=== PATIENT | female | born 1940 | race Caucasian/White ===

== ENCOUNTER 2020-04-03 14:58 | Observation (INO) | payer MEDICARE, SELFPAY ==
[2020-04-03] VITALS (15 sets, daily range): BP systolic 126–157; BP diastolic 59–111; PULSE 56–75; RESP 11–23; TEMP 35.8–36.8; O2SAT 97–100; BMI 19.8
--- NOTE | ~2020-04-03 | NM_ITS ---
EXAMINATION: NM sonam stress w perfusion DATE: 04/04/2020 14:25 INDICATION: Chest pain TECHNIQUE: Rest images were obtained following intravenous administration of 9.0 mCi Tc99m tetrofosmi n (Myoview). The patient was infused intravenously with Lexiscan (Regadenoson). Then, 27.5 mCi Tc99m tetrofosmin (Myoview) was administered intravenously, and stress images were obtained. Data was recon structed into short axis and horizontal and vertical long axis SPECT images. Gated SPECT images were also obtained. COMPARISON: None. FINDINGS: There is no definite reversible or fixed perfusion abnormality to suggest ischemia or infar ction. There is normal left ventricular chamber size, wall motion and ejection fraction. Left ventr icular ejection fraction measures >70%. IMPRESSION: 1. Normal myocardial perfusion at rest and during stress. 2. Left ventricular ejection fraction measuring >70%. Reviewed, dictated and finalized at location B.
--- NOTE | ~2020-04-03 | XR_ITS ---
EXAMINATION: XR chest 2V DATE: 04/03/2020 15:50 INDICATION: Left chest pain. TECHNIQUE: Frontal and lateral views of the chest were obtained. COMPARISON: Chest 2 views 05/28/2015 FINDINGS: The chest demonstrates clear lungs without pneumonia, pleural effusion, or pneumothorax. Th e heart size is normal. Calcified mediastinal lymph nodes are consistent with old granulomatous disea se. IMPRESSION: 1. No acute cardiopulmonary disease. Reviewed, dictated and finalized at location A.
--- NOTE | 2020-04-03 15:08 | ECG_ITS ---
Measurements Intervals [place] Rate: 55 P: 49 OH: 187 QRS: -51 QRSD: 99 T: 43 QT: 447 QTc: 428 Interpretive Statements SINUS BRADYCARDIA INCOMPLETE RIGHT BUNDLE BRANCH BLOCK LEFT ANTERIOR FASCICULAR BLOCK CANNOT RULE OUT SEPTAL INFARCT, AGE INDETERMINATE ABNORMAL ECG Electronically Signed On 04-03-2020 16:45:34 CDT by Boom Berrios D.O.
[2020-04-03 15:45] LABS: Basophils Percent Auto 0.2 % (0.2-1.2); Eosinophils Absolute Auto 0.1 K/mm3 (0-0.3); Eosinophils Percent Auto 0.8 % (0-4.4); Hematocrit 40.3 % (37.0-47.0); Hemoglobin 13.2 g/dL (12.0-15.0); Immature Granulocyte Absolute 0.06 K/mm3 (0.00-0.031); Lymphocytes Absolute Auto 1.87 K/mm3 (0.9-3.2); Mean Corpuscular HGB Conc 32.8 g/dl (32-36); Mean Corpuscular Hemoglobin 31.5 pg (26-34); Mean Corpuscular Volume 96.2 fl (80-100); Monocytes Absolute Auto 0.4 K/mm3 (0.1-0.6); Monocytes Percent Auto 6.3 % (2.6-8.5); Neutrophils Absolute Auto 3.9 K/mm3 (1.3-6.7); Neutrophils Percent Auto 61.7 % (45.5-73.1); Platelet Count Result 177 k/mm3 (150-375); Red Blood Count 4.19 M/mm3 (4.2-5.4); Red Cell Distribution Width 12.6 % (11.5-14.5); White Blood Count 6.2 K/mm3 (4.5-10.0)
[2020-04-03 15:55] LABS: Anion Gap 6 mmol/L (8-16); Blood Urea Nitrogen 12 mg/dL (7-17); Calcium 9.2 mg/dL (8.4-10.2); Carbon Dioxide 31 mmol/L (22-30); Chloride 101 mmol/L (98-107); Estimated CRCL calculation 45 ml/min; Estimated Glomerular Filt Rate > 60; Glucose 163 mg/dL (65-105); Potassium 3.6 mmol/L (3.4-5.0); Sodium 138 mmol/L (137-145)
[2020-04-03 16:03] LABS: Prothrombin Time 12.6 Seconds (11.1-14.7)
[2020-04-03 16:04] LABS: Partial Thromboplastin Time 23.7 SECONDS (22.3-36.8)
[2020-04-03 16:07] LABS: Troponin I < 0.012 ng/mL (0.000-0.034)
--- NOTE | 2020-04-03 17:38 | ED.CHESTPAIN ---
HPI - Chest Pain General Chief Complaint: Chest Pain Stated Complaint: chest pain Time Seen by Provider: 04/03/20 15:25 Source: patient and family Mode of arrival: ambulatory Limitations: other (Poor historian) History of Present Illness HPI narrative: 79-year-old female States she has no prior cardiac history About an hour and a half before arrival to the ER she said she was making some fried chicken and started having chest pain and diaphoresis Her son estimates that maybe it lasted 45 minutes until resolving while she was in the ambulance on the way to the hospital and she is in no discomfort now No nausea not short of breath MD complaint: chest pain Related Data Allergies Allergy/AdvReac Type Severity Reaction Status Date / Time No Known Allergies Allergy Verified 04/03/20 15:11 Review of Systems Review of Systems: All systems reviewed & are unremarkable except as noted in HPI and below Constitutional: Constitutional: Denies chills, Denies fatigue, Denies fever(s), Denies headache(s) and Denies weakness Eyes: Eyes: Denies change in vision and Denies other visual disturbances ENT: Denies headache(s), Denies epistaxis, Denies nasal congestion and Denies sore throat Cardiovascular: Cardiovascular: Reports chest pain, Denies leg edema, Denies palpitations and Denies dyspnea Respiratory: Respiratory: Denies cough, Denies dyspnea and Denies wheezing Gastrointestinal: Gastrointestinal: Denies abdominal pain, Denies diarrhea, Denies nausea and Denies vomiting Genitourinary: Genitourinary: Denies hematuria, Denies urinary frequency and Denies dysuria Musculoskeletal: Musculoskeletal: Denies deformity, Denies arthralgias, Denies joint swelling, Denies muscle weakness and Denies numbness Integumentary/Breasts: Skin/Breast: Denies rash, Denies unusual bruising and Denies wounds Neurologic: Denies Abnormal speech present, Denies headache(s), Denies focal weakness, Denies numbness and Denies weakness Psychiatric: Psychiatric: Reports no additional psychiatric complaints Endocrine: Endocrine: Denies fatigue and Denies palpitations Hematologic/Lymphatic: Hematologic/Lymphatic: Denies easy bleeding and Denies easy bruising Allergic/Immunologic: Allergic/Immunologic: Denies wheezing PMFSH Social History Social History Gender identity (if verbalized by the patient): Female Exam Const: General: no acute distress, well developed and awake Orientation/consciousness: patient oriented x3 (alert) Limitations: no limitations Other: Frail, elderly HENMT: Head: normocephalic and atraumatic Ears: external ears normal General nose exam: no epistaxis Eyes: Conjunctivae: conjunctivae normal Sclera: sclerae normal EOM: EOMs intact bilaterally Neck: Neck: normal visual inspection, supple and no JVD Resp: Effort & Inspection: normal respiratory effort Auscultation: clear to auscultation bilaterally, no rales, no rhonchi and no wheezes Cardio: Rate: regular rate Rhythm: regular rhythm Heart sounds: no gallops and no murmurs GI: Inspection: normal to inspection and non-distended GI Palp: Yes Soft to palpation and No Tenderness to palpation present (GI) : General: Yes no CVA tenderness Back/Spine/Pelvis: Thoracic/Lumbar Spine: thoracic and lumbar spine normal to inspection Skin: General skin exam: normal color and no rashes or lesions noted Neuro: General: patient oriented x3 (alert), moves all extremities and no focal motor deficits Speech: normal speech Motor exam (neuro): Motor abnormalities not present Extrem: General: normal to inspection, full ROM and no pedal edema Psych: Affect: normal affect Course Vital Signs Vital signs: Vital Signs Temperature 36.8 C 04/03/20 15:03 Pulse Rate 56 L 04/03/20 15:03 Respiratory Rate 12 04/03/20 15:03 Blood Pressure 157/71 H 04/03/20 15:03 Pulse Oximetry 100 04/03/20 15:03 Temperature 36.8 C 04/03/20 15:03 Pulse Rate 74
[2020-04-03 18:33] LABS: Troponin I < 0.012 ng/mL (0.000-0.034)
--- NOTE | 2020-04-03 19:14 | PC.NURSE ---
Report received from KADE Brenner, to continue care. Awaiting 3 hr troponin.
[2020-04-03 21:36] LABS: Troponin I < 0.012 ng/mL (0.000-0.034)
--- NOTE | 2020-04-03 21:41 | ADMGEN ---
This patient, Sheila Dennison, was admitted to IMU Room 200-01 at 2141. Patient/family oriented to hospital policies and general routines including ID bracelet, bed and alarms, visiting hours, pain management, procedures, bathroom and other care routines, personal items, smoking policy, room service/diet, and visiting hours. Information on how to activate the Rapid Response Team has been discussed. Patient/Family are encouraged to report perceived risks to care and to ask questions if they do not understand what they are told or what they should do.
--- NOTE | 2020-04-03 22:16 | ADMGEN ---
This patient, Sheila Dennison, was admitted to IMU Room 200-01. Patient/family oriented to hospital policies and general routines including ID bracelet, bed and alarms, visiting hours, pain management, procedures, bathroom and other care routines, personal items, smoking policy, room service/diet, and visiting hours. Information on how to activate the Rapid Response Team has been discussed. Patient/Family are encouraged to report perceived risks to care and to ask questions if they do not understand what they are told or what they should do.
[2020-04-04] VITALS (10 sets, daily range): BP systolic 132–151; BP diastolic 58–82; PULSE 55–70; RESP 12–18; TEMP 35.8; O2SAT 100
--- NOTE | 2020-04-04 | EST_ITS ---
Patient Info Name: Sheila Dennison Age: 79 years : 1940 Gender: Female Ht: 63 in Wt: 114 lbs BSA: 1.51 m2 Exam Date: 04/04/2020 1:20 PM Exam Location: [facility] Patient Status: Outpatient Admit Date: 04/03/2020 Staff Ordering Physician: Bartolome Boyd MD Attending Provider: Rylan Steele MD Exercise Technologist: Ronaldo Ascencio RDCS, RT Nurse: JERZY WOOD ANP Exam Type: CA stress sonam w NM Study Info A regadenoson stress test was performed. Summary 1. No abnormal ST-T wave changes with lexiscan. 2. Patient was given Aminophylline 50 mg IV push for nausea. 3. Nuclear test results to follow. Protocol: Lexiscan Stress ECG Details Stage: REST Duration (min): 1 min : 22 sec HR (bpm): 64 SBP (mmHg): --- DBP (mmHg): --- Stage: REST Duration (min): 11 min : 5 sec HR (bpm): 63 SBP (mmHg): 176 DBP (mmHg): 75 Stage: STAGE 1 Duration (min): 1 min : 0 sec HR (bpm): 84 SBP (mmHg): 183 DBP (mmHg): 66 Stage: RECOVERY Duration (min): 1 min : 0 sec HR (bpm): 85 SBP (mmHg): 183 DBP (mmHg): 66 Stage: RECOVERY Duration (min): 2 min : 0 sec HR (bpm): 86 SBP (mmHg): 183 DBP (mmHg): 66 Stage: RECOVERY Duration (min): 3 min : 0 sec HR (bpm): 85 SBP (mmHg): 164 DBP (mmHg): 74 Stage: RECOVERY Duration (min): 4 min : 0 sec HR (bpm): 76 SBP (mmHg): 164 DBP (mmHg): 74 Stage: RECOVERY Duration (min): 5 min : 0 sec HR (bpm): 73 SBP (mmHg): 170 DBP (mmHg): 76 Stage: RECOVERY Duration (min): 6 min : 0 sec HR (bpm): 71 SBP (mmHg): 170 DBP (mmHg): 76 Stage: RECOVERY Duration (min): 7 min : 0 sec HR (bpm): 69 SBP (mmHg): 157 DBP (mmHg): 74 Stage: RECOVERY Duration (min): 7 min : 46 sec HR (bpm): 70 SBP (mmHg): 157 DBP (mmHg): 74 Rest HR: 63 bpm Peak HR: 88 bpm Rest Sys BP: 176 mmHg Peak Sys BP: 183 mmHg Max Pred HR: 139 bpm % Max Pred HR: 63 % Target HR: 118 bpm Max RPP: 16,104 bpm*mmHg BP Response: Normal blood pressure response Termination Reason: Completed protocol Cardiac Symptoms: None Total Time: 1 min : 0 sec Rest Schneider BP: 75 mmHg Peak Schneider BP: 66 mmHg Total Dose: 0.4 mg Resting ECG Normal sinus rhythm - normal ECG. Stress ECG No abnormal ST/T wave changes with exercise. Arrhythmias None. Report Signatures
[2020-04-04] MEDS: MELATONIN 5 MG TABLET PO (00:26)
[2020-04-04] MEDS: LACTATED RINGERS 1,000 ML 60 ML IV CONT (05:42)
[2020-04-04 07:00] LABS: Glucose Point of Care 133 (65-105)
--- NOTE | 2020-04-04 07:03 | PC.NURSE ---
0650-pt presents to the [facility] from the IMU. No pain at present. AOx4. Resting quietly. Will continue to monitor.
--- NOTE | 2020-04-04 08:58 | PM.IMHP ---
H&P: HPI History of Present Illness Date/Time: 04/04/20 08:58 Chief complaint: chest pain Narrative: Sheila Dennison is a 79 year old female with no prior documented history of coronary artery disease who is admitted to the chest Pain Center last evening after being seen in the emergency room. The patient states that she was at home in her usual state of fairly good health when she was cooking dinner for her grandchildren and began to feel ill in the kitchen. She when out into a separate room to get some fresh air and stated that she was experiencing a sense of some diaphoresis and after that had some central retrosternal pressure-like chest pain that was not severe but was making her feel unwell. A family member came in to check on her and noticed she was in some distress when she reported the symptoms 911 was called and she was evaluated at her home and brought to the hospital. She did receive a sublingual nitroglycerin tablet the by the EMS crew which she states fairly quickly alleviated her symptoms or at least dramatically improved them by the time she got to the emergency room she was essentially asymptomatic. Her electrocardiogram in the emergency room was unremarkable. She was admitted as a chest Pain Center patient overnight. Her biomarkers have remained negative. She is asymptomatic this morning. Interestingly she states that she had a similar episode about 10 days ago and was hospitalized overnight in the hospital up in [place]. She once again she states that her laboratory work was unremarkable her physician told her that she should have a stress test. She showed up as an outpatient for the stress test that was scheduled but she was told by the staff that she was not on the schedule so she went home. She has no other complaints of a cardiac nature and has no other history any cardiac problems in past. She has been remarkably good health for her advanced age she does take a small dose of simvastatin for dyslipidemia. She denies a history of hypertension or diabetes. Normally she is a relatively active lady cares for her own home and her own activities of daily living. Her last year he had a long cardiac history. She now lives in her own home with her son who assists her. Review of Systems Constitutional: Constitutional: Reports no additional constitutional complaints Eyes: Eyes: Reports no additional eye complaints ENT: Reports system reviewed and no additional complaints, except as documented Cardiovascular: Cardiovascular: Reports as per HPI Respiratory: Respiratory: Reports as per HPI Gastrointestinal: Gastrointestinal: Reports no additional gastrointestinal complaints Musculoskeletal: Musculoskeletal: Reports no additional musculoskeletal complaints and Reports myalgias Neurologic: Reports system reviewed and no additional complaints, except as documented [facility] Family History Family History (Updated 04/03/20 @ 22:07 by Lorrie Zhong RN) Father Congestive heart failure Social History Social History Smoking status: Never smoker Second hand tobacco smoke exposure: Yes Alcohol intake: never Substance use: never Substance use type: does not use Living arrangements: alone Gender identity (if verbalized by the patient): Male Spiritual care concerns: No Meds Home Medications and Allergies Home Medications Medication Instructions Recorded Confirmed Type nitroglycerin 0.4 mg SUBLINGUAL PRN PRN 04/03/20 04/04/20 History simvastatin 5 mg PO DAILY 04/03/20 04/04/20 History Allergies Allergy/AdvReac Type Severity Reaction Status Date / Time No Known Allergies Allergy Verified 04/03/20 15:11 Vital Signs Vital Signs - 24 hr 04/03/20 15:03 04/03/20 15:09 04/03/20 16:30 Temperature 36.8 C Pulse Rate 56 L 56 L 62 Respiratory Rate 12 23 H Blood Pressure 157/71 H 144/78 H Pulse Oximetry 100 100 97 04/03/20 17:44 04/03/20 19:01 04/03/20 19:17 Temperatu
--- NOTE | 2020-04-04 12:31 | PC.NURSE ---
1230-pt taken to stress lab
--- NOTE | 2020-04-04 15:54 | PC.NURSE ---
1540-pt given D/C orders and instructions. Questions answered and verbalized understanding. AOx4. PIV removed intact. Taken via wheelchair to waiting vehicle. No distress noted or verbalized at time of departure.
== END 2020-04-04 15:56 | disposition home or self-care (01) ==
LOC: ANHED 20:52 → ANHIMU 21:15 → ANHCPC 04-04 07:42
PROVIDERS: Admitting Provider Internal Medicine Cardiovascular Disease; Emergency Provider Emergency Medicine; PCP Family Medicine; Visit Provider Internal Medicine Cardiovascular Disease
DX: R07.9 Chest pain, unspecified (principal); E78.5 Hyperlipidemia, unspecified
CPT/HCPCS: 36415; 71046; 78452; 80048; 84484; 85025; 85610; 85730; 93005; 93017; 99285; A9270; A9502; G0378; J0280; J2785; J7120

== ENCOUNTER 2023-10-31 01:34 | Emergency (ER) | payer OTHER, SELFPAY ==
--- NOTE | ~2023-10-31 | XR_ITS ---
EXAMINATION: XR knee RT 3V DATE: 10/31/2023 02:11 INDICATION: Right knee pain. Fall. TECHNIQUE: 3 views of right knee were obtained. COMPARISON: None. FINDINGS: Bone alignment is normal. No fracture. There is mild osteoarthritis of medial compartment c haracterized by tiny osteophytes. No knee joint effusion. IMPRESSION: 1. Mild right knee osteoarthritis. Reviewed, dictated and finalized at location A.
--- NOTE | 2023-10-31 01:38 | ED.FALL ---
HPI - Fall General Chief Complaint: Extremity Injury, Lower Stated Complaint: fall Time Seen by Provider: 10/31/23 01:38 Source: patient and family Mode of arrival: ambulatory Limitations: no limitations History of Present Illness HPI Narrative: Patient is an 83-year-old female with some dementia here with right knee injury done 3 days ago at home. Patient had a mechanical fall at home in her living room. complaint: fall Onset (ago): day(s) (3) Fall from: standing Fall witnessed: no Place fall occurred: home Loss of consciousness: none Prolonged down time: no Symptoms prior to fall: none Context: tripped/slipped Location of injury: other ( Right knee) Location of injury - extremities: Right: knee Severity: mild Severity scale (1-10): 1 Quality: dull Associated symptoms (after fall): denies Related Data Home Medications Medication Instructions Recorded Confirmed No Home Medications 08/05/21 02/04/22 Allergies Allergy/AdvReac Type Severity Reaction Status Date / Time No Known Allergies Allergy Verified 10/31/23 02:20 Review of Systems Review of Systems: All systems reviewed & are unremarkable except as noted in HPI and below Constitutional: Constitutional: Reports no additional constitutional complaints Eyes: Eyes: Reports no additional eye complaints ENT: Reports system reviewed and no additional complaints, except as documented Cardiovascular: Cardiovascular: Reports no additional cardiovascular complaints Respiratory: Respiratory: Reports no additional respiratory complaints Gastrointestinal: Gastrointestinal: Reports no additional gastrointestinal complaints Genitourinary: Genitourinary: Reports no additional female genitourinary complaints Musculoskeletal: Musculoskeletal: Reports no additional musculoskeletal complaints Integumentary/Breasts: Skin/Breast: Reports system reviewed and no additional complaints, except as docu Neurologic: Reports system reviewed and no additional complaints, except as documented Psychiatric: Psychiatric: Reports no additional psychiatric complaints Endocrine: Endocrine: Reports no additional endocrine complaints Hematologic/Lymphatic: Hematologic/Lymphatic: Reports no additional hematologic/lymphatic complaints Allergic/Immunologic: Allergic/Immunologic: Reports no additional allergic/immunologic complaints PMFSH Surgical History Surgical History Hx of neck surgery Family History Family History Father Congestive heart failure Social History Social History Smoking status: Never smoker Second hand tobacco smoke exposure: Yes Alcohol intake: never Substance use: never Substance use type: does not use Living arrangements: alone Gender identity (if verbalized by the patient): Male Spiritual care concerns: No Exam Const: General: healthy appearing and no acute distress Nutritional Appearance: well nourished Orientation/consciousness: patient oriented x3 HENMT: Head: normal to inspection Ears: external ears normal Face/Nose/Sinus: Normal external nose present Face and sinus: normal facial exam Mouth: Yes Normal oral and palatal mucosa present Teeth and gingiva: dentition normal Throat: posterior oropharynx normal Eyes: Conjunctivae: conjunctivae normal Pupils: Equal, round and reactive pupils present EOM: EOMs intact bilaterally Neck: Neck: normal visual inspection Chest: Chest palpation & inspection: normal inspection of the chest Resp: Effort & Inspection: normal respiratory effort and not labored Auscultation: clear to auscultation bilaterally and no crackles Cardio: Rate: regular rate Rhythm: regular rhythm Heart sounds: no murmurs GI: Inspection: non-distended GI Palp: Yes Soft to palpation and No Tenderness to palpation present (GI) Auscultat
[2023-10-31 01:41] VITALS: BP 180/107; PULSE 76; RESP 18; TEMP 36.3; O2SAT 100
[2023-10-31 02:04] VITALS: BP 157/107
--- NOTE | 2023-10-31 02:30 | PC.NURSE ---
Patients granddaughter asking about admission process for alf placement. Patients family educated on process for detention placement. Family states that patient has beginning stages of dementia and are concerned with her care. Family educated on process of caring for patient with dementia. Family requesting to leave patient here overnight so they can move where she is staying. Family educated that you cannot leave patient as she has been cleared by ERP for original compliant of right knee pain.
== END 2023-10-31 02:50 | disposition home or self-care (01) ==
PROVIDERS: Emergency Provider Emergency Medicine; PCP Nurse Practitioner Family
DX: S80.01XA Contusion of right knee, initial encounter (principal); W01.0XXA Fall on same level from slipping, tripping and stumbling without subsequent striking against object, initial encounter
CPT/HCPCS: 73562; 99283

== ENCOUNTER 2023-11-02 00:53 | Observation (INO) | payer MEDICARE, SELFPAY ==
[2023-11-02] VITALS (22 sets, daily range): BP systolic 113–195; BP diastolic 46–87; PULSE 57–79; RESP 11–18; TEMP 36.9; O2SAT 98–100
--- NOTE | ~2023-11-02 | CT_ITS ---
EXAMINATION: CT brain wo con DATE: 11/02/2023 06:10 INDICATION: Dementia. TECHNIQUE: Computed tomography (CT) of the head was performed without intravenous contrast. The mA wa s adjusted according to patient size. Iterative reconstruction technique was employed. The dose-lengt h product was 605.33 mGy-cm. COMPARISON: None FINDINGS: There are scattered areas of low attenuation in the cerebral white matter. There is an old infarct in left parietal lobe. There is no acute infarction or abnormal intracranial mass lesion. The re is a acute subarachnoid hemorrhage in a sulcus in left occipital lobe. The ventricles are normal i n size. The paranasal sinuses are clear. There are likely changes of left ocular lens replacement leisa barbara. 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 The mastoid air cells are normal. IMPRESSION: 1. Acute subarachnoid hemorrhage in a sulcus in left occipital lobe. I called this result to Dr. Ephraim echavarria. 2. 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 3. Moderate nonspecific cerebral white matter disease, which likely represents chronic small vessel i schemic disease. Reviewed, dictated and finalized at location E. IMPRESSION: 1. Acute subarachnoid hemorrhage in a sulcus in left occipital lobe. I called t his result to Dr. Medrano. 2. 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 3. Moderate nonspecific cerebral white matter disease, which likely represents chronic small vessel ischemic disease.
--- NOTE | ~2023-11-02 | CT_ITS ---
EXAMINATION: CT brain wo con DATE: 11/02/2023 16:23 INDICATION: Subarachnoid hemorrhage left occipital lobe TECHNIQUE: Computed tomography (CT) of the head was performed without intravenous contrast. The dose- length product was 756.67 mGy-cm. COMPARISON: CT dated 11/02/2023 FINDINGS: There is an acute subarachnoid hemorrhage left occipital lobe, slightly increased compared with prior examination allowing for technique. There is chronic left posterior parietal infarction. T here are scattered severe periventricular and subcortical white matter changes, most likely related t o small vessel ischemic disease (microangiopathy). No ventriculomegaly or midline shift. Paranasal si nuses and mastoids are pneumatized. No depressed skull fractures. 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 IMPRESSION: 1. Slightly increased size of subarachnoid hemorrhage left occipital lobe. 2: Stable chronic infarction left parietal lobe. 3: Chronic age-related findings. Reviewed, dictated and finalized at location A.
--- NOTE | ~2023-11-02 | XR_ITS ---
EXAMINATION: XR chest 1V DATE: 11/02/2023 06:14 INDICATION: Dementia. TECHNIQUE: A single frontal view of the chest was obtained. COMPARISON: Chest 2 views 04/03/2020 FINDINGS: A calcified left lung nodule and calcified left hilar lymph nodes are consistent with old g ranulomatous disease. There is no pneumonia, pleural effusion, or pneumothorax. The heart size is nor mal. IMPRESSION: 1. No acute cardiopulmonary disease. Reviewed, dictated and finalized at location E.
--- NOTE | ~2023-11-02 | CT_ITS ---
EXAMINATION: CTA brain DATE: 11/02/2023 07:08 INDICATION: Acute subarachnoid hemorrhage. TECHNIQUE: Computed tomographic angiography (CTA) of the head was performed with 100 mL Omnipaque-350 intravenous contrast. Automated exposure control and iterative reconstruction technique were employe d. The dose-length product was 365.24 mGy-cm. Maximum intensity projection 3D reconstructions were c reated. Volume-rendered 3D reconstructions of the intracranial arteries were created by the technolog ist on a separate workstation. COMPARISON: Head CT 11/02/2023 FINDINGS: There are scattered areas of low attenuation in the cerebral white matter. There is an old infarct in left parietal lobe. There is no acute infarction or abnormal intracranial mass lesion. The re is a acute subarachnoid hemorrhage in a sulcus left occipital lobe. The ventricles are normal in s ize. The paranasal sinuses are clear. There are likely changes of left ocular lens replacement surger y. 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 The mastoid air cells are normal. Left vertebral art isabella is dominant. There is no significant stenosis of basilar artery or the posterior cerebral arterie s. The posterior communicating arteries are normal. There is no significant stenosis of intracranial internal carotid arteries or anterior or middle cerebral arteries. Anterior communicating artery is n ormal. There is no aneurysm. IMPRESSION: 1. Acute subarachnoid hemorrhage in a sulcus in left occipital lobe. 2. Old infarct in the left parietal lobe. 3. Moderate nonspecific cerebral white matter disease, which likely represents chronic small vessel i schemic disease. 4. No aneurysm or significant intracranial arterial stenosis. Reviewed, dictated and finalized at location E. IMPRESSION: 1. Acute subarachnoid hemorrhage in a sulcus in left occipital lobe. 2. Old infarct in the left parietal lobe. 3. Moderate nonspecific cerebral white matter disease, which likely represents chronic small vessel ischemic disease. 4. No aneurysm or significant intracranial arterial stenosis.
--- NOTE | 2023-11-02 05:48 | ED.GENADULT ---
HPI - General Adult General Chief complaint: Unspecified <Teddy Medrano DO - Last Filed: 11/02/23 19:42> Stated complaint: dementia <Teddy Medrano DO - Last Filed: 11/02/23 19:42> Time Seen by Provider: 11/02/23 05:36 <Teddy Medrano DO - Last Filed: 11/02/23 19:42> Source: patient <Teddy Medrano DO - Last Filed: 11/02/23 19:42> Limitations: dementia <Teddy Medrano DO - Last Filed: 11/02/23 19:42> History of Present Illness HPI narrative: Patient is a 83-year-old female who presents to the emergency department via family for requesting placement due to patient having poor functional status and having dementia and being baseline alert and oriented times herself and living alone and would like her to get placed in a facility. Family denies any recent injuries or recent illness aside from a fall approximately 1 week ago which the patient hurt her knee. Patient is typically ambulatory without assistance. Family does report that the patient has been having some angry outbursts lately and they are feel like they are unable to care for her as she requires. Patient denies any current complaints and states that she feels well. <Teddy Medrano DO - Last Filed: 11/02/23 19:42> Related Data Home medications: Home Medications Medication Instructions Recorded Confirmed No Home Medications 08/05/21 02/04/22 <Teddy Medrano DO - Last Filed: 11/02/23 19:42> Allergies/adverse reactions: Allergies Allergy/AdvReac Type Severity Reaction Status Date / Time No Known Allergies Allergy Verified 10/31/23 02:20 <Teddy Medrano DO - Last Filed: 11/02/23 19:42> Review of Systems Review of Systems: All systems reviewed & are unremarkable except as noted in HPI and below <Teddy Medrano DO - Last Filed: 11/02/23 19:42> PMFSH Surgical History Surgical History: Surgical History Hx of neck surgery <Teddy Medrano DO - Last Filed: 11/02/23 19:42> Family History Family History: Family History Father Congestive heart failure <Teddy Medrano DO - Last Filed: 11/02/23 19:42> Social History Social History: Social History Smoking status: Never smoker Second hand tobacco smoke exposure: Yes Alcohol intake: never Substance use: never Substance use type: does not use Living arrangements: alone Gender identity (if verbalized by the patient): Male Spiritual care concerns: No <Teddy Medrano DO - Last Filed: 11/02/23 19:42> Comments At time of signature, I have reviewed and agree with nursing past medical, surgical, social and family history unless otherwise noted. Please see the nursing chart for further information. There is no relevant family history pertinent to the presenting complaint. <Teddy Medrano DO - Last Filed: 11/02/23 19:42> Exam Narrative: CONST: No acute distress. HENMT: Head is normocephalic and atraumatic. Moist mucous membranes. No posterior oropharynx erythema. EYES: No conjunctival icterus, injection, or pallor. PERRL. NECK: No meningeal signs. RESP: Able to speak in full sentences. Normal respiratory effort. CTAB. CARDIO: Regular rate. Regular rhythm. 2+ DP and radial pulses bilaterally. GI: Nondistended. No tenderness to palpation. Soft. : No CVA tenderness to palpation. SKIN: No rashes or lesions noted on exposed skin. NEURO: Oriented x1. Moves all extremities. Stable gait. No focal neurological deficits. EXTREM/MSK/BACK: No pedal edema. <Teddy Medrano DO - Last Filed: 11/02/23 19:42> Course Vital Signs Vital signs: Vital Signs Temperature 98.4 F 11/02/23 00:52 Pulse Rate 66 11/02/23 00:52 Respiratory Rate 18 11/02/23 00:52 Blood Pressure 181/80 H 11/02/23 00:52
--- NOTE | 2023-11-02 05:49 | ECG_ITS ---
SEE SCANNED COPY FOR CONFIRMED REPORT MTDD
--- NOTE | 2023-11-02 06:06 | PC.NURSE ---
pt SANDYA is Sharee and number to call is [phone]. Sharee states she is waiting in her truck in the parking lot but can be readily available if needed.
[2023-11-02 06:25] LABS: Basophils Percent Auto 0.3 % (0.2-1.2); Eosinophils Absolute Auto 0.1 K/mm3 (0-0.3); Eosinophils Percent Auto 1.9 % (0-4.4); Hematocrit 45.8 % (37.0-47.0); Hemoglobin 14.9 g/dL (12.0-15.0); Immature Granulocyte Absolute 0.03 K/mm3 (0.00-0.031); Immature Granulocyte Percent A 0.5 % (0-0.5); Lymphocytes Absolute Auto 2.29 K/mm3 (0.9-3.2); Lymphocytes Percent Auto 36.1 % (18.3-44.2); Mean Corpuscular HGB Conc 32.5 g/dl (32-36); Mean Corpuscular Hemoglobin 30.5 pg (26-34); Mean Corpuscular Volume 93.7 fl (80-100); Mean Platelet Volume 10.8 fl (7.4-10.4); Monocytes Absolute Auto 0.6 K/mm3 (0.1-0.6); Monocytes Percent Auto 9.6 % (2.6-8.5); Neutrophils Absolute Auto 3.3 K/mm3 (1.3-6.7); Neutrophils Percent Auto 51.6 % (45.5-73.1); Platelet Count Result 204 k/mm3 (150-375); Red Blood Count 4.89 M/mm3 (4.2-5.4); Red Cell Distribution Width 13.2 % (11.5-14.5); White Blood Count 6.3 K/mm3 (4.5-10.0)
[2023-11-02 06:35] LABS: Acetaminophen < 10 ug/mL (10-30); Salicylate < 1.0 mg/dL (2-20)
[2023-11-02 06:38] LABS: INR 0.9; Prothrombin Time 12.9 Seconds (11.1-14.7)
[2023-11-02 06:39] LABS: Partial Thromboplastin Time 24.8 Seconds (22.3-36.8)
[2023-11-02 06:45] LABS: Alanine Aminotransferase 18 U/L (6-35); Albumin Level 4.5 g/dL (3.5-5.1); Alkaline Phosphatase 85 U/L (38-126); Anion Gap 6 mmol/L (4-12); Aspartate Amino Transferase 30 U/L (14-36); Bilirubin,Total 1.6 mg/dL (0.2-1.3); Blood Urea Nitrogen 8 mg/dL (7-17); Calcium 9.7 mg/dL (8.4-10.2); Carbon Dioxide 29 mmol/L (22-30); Chloride 105 mmol/L (98-107); Estimated CRCL calculation 42 ml/min; Estimated Glomerular Filt Rate > 60; Glucose 142 mg/dL (65-110); Magnesium 2.2 mg/dL (1.6-2.3); Potassium 3.9 mmol/L (3.4-5.0); Sodium 140 mmol/L (137-145)
[2023-11-02 07:01] LABS: Influenza A QL RT-PCR Negative (Negative); Influenza B QL RT-PCR Negative (Negative); RSV RNA, RT-PCR Negative (Negative); SARS-CoV-2 RNA PCR Negative (Negative)
[2023-11-02] MEDS: LABETALOL HCL INJ 100 MG/20 ML VIAL 20 MG IV PUSH (07:29)
[2023-11-02 07:45] LABS: Appearance Urine Clear (Clear); Bacteria Urine None Seen /hpf; Bilirubin Urine Negative (Negative); Blood Urine Negative (Negative); Color Urine Yellow (Yellow); Glucose Urine UA Negative (Negative); Ketones Urine Negative (Negative); Leukocyte Esterase Ur 1+ LEU/UL (Negative); Need Manual Microscopic Reviewed; Nitrate Urine Negative (Negative); Non Pathogenic Casts 0-2; Protein Urine Negative (Negative); RBC Urine 0-2 /hpf (0-2); Specific Grav Ur 1.019 (1.001-1.035); Squamous Epithelial Cell Urine Occasional /hpf (Few); WBC Urine 0-5 /hpf (0-3); pH Urine 7.5 (5.0-9.0)
[2023-11-02 07:46] LABS: Add Urine Microscopic? YES
[2023-11-02 08:28] LABS: Amphetamine Screen Urine Negative (Negative); Barbiturate Screen Urine Negative (Negative); Benzodiazepines Screen Urine Negative (Negative); Cannabinoid Screen Urine Negative (Negative); Cocaine Screen Urine Negative (Negative); Methadone Screen Urine Negative (Negative); Opiate Screen Urine Negative (Negative); Phencyclidine Screen Urine Negative (Negative)
--- NOTE | 2023-11-02 11:39 | WPDNEUROSGCN ---
Assessment and Plan Assessment and plan (1) Subarachnoid hemorrhage: Code(s): I60.9 - Nontraumatic subarachnoid hemorrhage, unspecified Status: Acute (2) Comfort measures only status: Code(s): Z51.5 - Encounter for palliative care Status: Acute Plan Ms. Dennison is an 83-year-old female with history of dementia whose family brought her to the hospital for placement as they are having difficulty providing care for her at home. She apparently had a recent fall in which she injured her knee and was evaluated at an outside hospital. Dr. Medrano obtained a CT head this morning which shows a very small left occipital subarachnoid hemorrhage as well as an old infarct adjacent to this. I recommended a CTA which does not show evidence of a vascular lesion. I am told the patient is at her neurologic baseline and that she does not take blood thinners. I had recommended follow up CT head later today to ensure stability of the hemorrhage and keeping SBP < 160. I have since been informed that the patient's family has decided against any aggressive treatments and that they wish for her to have comfort measures only. In that case, she does not require any follow up imaging, close neurologic monitoring, or blood pressure control. Even if she desired full care/full code, this small subarachnoid hemorrhage would not require any surgical intervention. She can certainly be cared for here at [place] for facility placement. Consult date: 11/02/23 HPI: Sheila Dennison is a 83 year old female with history of dementia who was brought to the ER overnight for placement amid growing difficulty for her family to care for her at home. [facility] Surgical History Surgical History Hx of neck surgery Family History Family History Father Congestive heart failure Social History Social History Smoking status: Never smoker Second hand tobacco smoke exposure: Yes Alcohol intake: never Substance use: never Substance use type: does not use Living arrangements: alone Gender identity (if verbalized by the patient): Male Spiritual care concerns: No Meds Home Medications and Allergies Home Medications Medication Instructions Recorded Confirmed Type No Home Medications 08/05/21 02/04/22 History Allergies Allergy/AdvReac Type Severity Reaction Status Date / Time No Known Allergies Allergy Verified 10/31/23 02:20 Vital Signs Vital Signs - 24 hr 11/02/23 00:52 11/02/23 06:22 11/02/23 06:29 Temperature 98.4 F Pulse Rate 66 79 65 Respiratory Rate 18 13 Blood Pressure 181/80 H 195/75 H Pulse Oximetry 100 98 Oxygen Delivery Room Air 11/02/23 07:14 11/02/23 07:16 11/02/23 08:30 Temperature Pulse Rate 72 58 L Respiratory Rate 16 16 16 Blood Pressure 187/81 H 182/75 H 162/65 H Pulse Oximetry 100 99 99 Oxygen Delivery 11/02/23 09:01 11/02/23 09:15 Temperature Pulse Rate 57 L 58 L Respiratory Rate 15 13 Blood Pressure 153/66 H 143/65 H Pulse Oximetry 100 100 Oxygen Delivery Results Labs 11/02/23 06:19 11/02/23 06:19 Labs: Short CBC 11/02/23 Range/Units 06:19 WBC 6.3 (4.5-10.0) K/mm3 Hgb 14.9 (12.0-15.0) g/dL Hct 45.8 (37.0-47.0) % Plt Count 204 (150-375) k/mm3 BMP 11/02/23 06:19 Sodium 140 Potassium 3.9 Chloride 105 Carbon Dioxide 29 BUN 8 Creatinine 0.70 Glucose 142 H Calcium 9.7 Liver Function 11/02/23 Range/Units 06:19 Total Bilirubin 1.6 H (0.2-1.3) mg/dL AST 30 (14-36) U/L ALT 18 (6-35) U/L Alkaline Phosphatase 85 (38-126) U/L Albumin 4.5 (3.5-5.1) g/dL Urine 11/02/23 Range/Units 07:25 Urine Color Yellow (Yellow) Urine Appearance Clear (Clear) Urine pH 7.5 (5.0-9.0) Ur Specific [place] 1.0
[2023-11-02] MEDS: ACETAMINOPHEN 325 MG TABLET 650 MG PO (15:17)
--- NOTE | 2023-11-02 18:29 | PCCCNOTE ---
CC called to the ED for placement for this pt. Spoke with family, they prefer [facility]. Pt does not have a POA or DNR signed and is disoriented at this time. I spoke with her son Edwin Dennison, , who agrees that [facility] () is where they would like for her to go. 1100: I spoke with Ivet Ray from , and sent the referral, awaiting return call. 1317: Faxed a referral to [facility] incase she is unable to go to [facility]. 1330: Ivet from [facility] called back, unable to get an answer at this time in regards to taking pt today. Brittany from [facility] called regarding the referral, she will let call with answer. 1600: Brittany called back, had some questions, answered her questions, awaiting her to talk to family. 1700: Pt unable to go to [facility]. Possible [facility] transfer. 1840: Pt is not accepted at [facility]. 1845: Attempted to call Ivet, left a voice message.
--- NOTE | 2023-11-02 19:26 | PM.IMHP ---
H&P: HPI History of Present Illness Date/Time: 11/02/23 19:00 Chief Complaint: Needs alf placement. Narrative: This is a very pleasant 83-year-old female with probable underlying dementia although she has never been formally diagnosed, hypertension, paroxysmal atrial fibrillation, and hyperlipidemia who presented to the emergency department accompanied by family members last evening because ?she needs alf placement.? The patient is a poor historian and her family members (including son Edwin, adopted son Sergio, and granddaughter Sharee) provide the following history. She lives in her own home in [place] and 1 of her sons had been her primary employment program representative until he about 3 weeks ago. Several family members have stepped up and have been trying to care for her however have found that increasingly difficult; the patient has outbursts of anger and frequently wanders and it is not unusual for her to leave the house and walk to neighbors homes or even local establishments. At time she refuses food and toileting and has been neglecting self-care. They have been trying to find a alf for her without much success and she was brought to the emergency department around midnight for help. On exam she was noted to have an abrasion on her right knee and was told that the patient had an unwitnessed fall about a week ago. Labs and imaging were ordered and she was found to have a subarachnoid hemorrhage on brain CT. Neurosurgeon on-call was contacted and a CTA was requested at which time they stated there was no indication for neurosurgical intervention. Repeat brain CT done 12 hours after the first showed a slight increase in size of the subarachnoid hemorrhage. These findings were presented to the patient's family and they decided as a group (she does not have a designated healthcare power of associate attorney) that they would not want any intervention if the patient's condition were to deteriorate and at that juncture they would pursue comfort measures only. In the interim they would like to get her placed in a nursing facility with a code status of DNR/DNI. At the time of my evaluation the patient is alert and oriented x1 which is her baseline. She is in good spirits and has no complaints. She denies headache, neck ache, visual changes, focal weakness, paresthesias, chest pain, shortness of breath, nausea, vomiting, diarrhea, and dysuria. Review of Systems Review of Systems: Unable to be obtained accurately given her significant short-term memory loss. [facility] Past Medical History Medical History (Updated 11/02/23 @ 22:33 by Nicole Howard PA-C) Dyslipidemia Hypertension Hypothyroidism Normal nuclear stress test (03/2020) Paroxysmal atrial fibrillation Surgical History Surgical History (Updated 11/02/23 @ 22:00 by Nicole Howard PA-C) History of section History of ovarian cystectomy Family History Family History Father Congestive heart failure Social History Social History (Updated 11/02/23 @ 22:13 by Nicole Howard PA-C) Social History: Next of kin/surrogate decision maker: Edwin Dennison, son. Code status: DNR/DNI. Smoking status: Never smoker Second hand tobacco smoke exposure: Yes Alcohol intake: never Substance use: never Substance use type: does not use Do You Feel Safe in your Home?: Yes Lack of Transportation: No Lack of Food: Never True Current Housing: I Have Housing Concerned About Future Housing: No Difficulty Paying Gas/Electric Bills: No Difficulty Paying for Meds: No Currently Unemployed: No Education: Grade School Difficulty w/ Childcare or Family Care: No Spiritual care concerns: No Meds Home Medications and Allergies Home Medications Medication Instructions Recorded Confirmed Type No Home Medications 08/05/21 11/02/23 History Allergies Allergy/AdvReac Type Severity Reac
[2023-11-02 19:36] LABS: Free T4 Free Thyroxine Reflex 1.17 ng/dL (0.78-2.19)
[2023-11-02 20:19] LABS: Total Triiodothyronine (T3) 1.24 NG/ML (0.97-1.69)
--- NOTE | 2023-11-02 20:57 | ADMGEN ---
This patient, Sheila Dennison, was admitted to Medical Room 345-01. Patient/family oriented to hospital policies and general routines including ID bracelet, bed and alarms, visiting hours, pain management, procedures, bathroom and other care routines, personal items, smoking policy, room service/diet, and visiting hours. Information on how to activate the Rapid Response Team has been discussed. Patient/Family are encouraged to report perceived risks to care and to ask questions if they do not understand what they are told or what they should do.
--- NOTE | 2023-11-02 21:25 | PC.NURSE ---
PATIENT SON CAT LOPEZ IN ROOM AT TIME OF ADMISSION AND STATES HE WANTS NO INFO GIVEN TO HIS SISTER-PATIENTS DAUGHTER TORITO VERDE- DUE TO FAMILY DISCORD. THE INFORMATION TO BE GIVEN IS ONLY TO CAT AND GRANDDAUGTER IZABELLA LOPEZ. WISHES FOR PATIENT TO BE LISTED CONFIDENTIAL.
[2023-11-03 06:00] VITALS: BP 162/77; PULSE 60; RESP 20; TEMP 36.3; O2SAT 100
[2023-11-03 08:13] VITALS: O2SAT 97
--- NOTE | 2023-11-03 13:06 | PM.IMPN ---
Progress Note: A&P Assessment and Plan (1) Subarachnoid hemorrhage: Code(s): I60.9 - Nontraumatic subarachnoid hemorrhage, unspecified Status: Acute Assessment and Plan: The patient presented to the emergency department accompanied by family members who are requesting help getting her placed in a nursing facility. Initial workup included a brain CT due to a recent fall and that showed a subarachnoid hemorrhage. Repeat CT in 12 hours showed a slight increase in size of the bleed. Neurosurgery was consulted in the indicated that the patient is not a candidate for surgical intervention. Furthermore family members would not want any intervention should her condition decline at which time they would go comfort measures only. She is thus being at this time for her safety due to family's lack of ability to care for her appropriately; she is not safe to return to her home alone. Care coordination has been consulted and they are working on finding placement. [facility] head of bed Tylenol PRN (2) Unable to care for self: Code(s): Z78.9 - Other specified health status Status: Acute Assessment and Plan: Care coordination consult. (3) Cognitive decline: Code(s): R41.89 - Other symptoms and signs involving cognitive functions and awareness Status: Acute Assessment and Plan: Needs correction placement (4) Hypertension: Code(s): I10 - Essential (primary) hypertension Status: Acute Assessment and Plan: Currently not on any medications. 181/80 on arrival to the ED. Will start patient on amlodipine 5 mg daily (5) Paroxysmal atrial fibrillation: Code(s): I48.0 - Paroxysmal atrial fibrillation Status: Acute Assessment and Plan: Currently not on any medications. (6) Hypothyroidism: Code(s): E03.9 - Hypothyroidism, unspecified Status: Acute Assessment and Plan: Currently not on any medications. Plan The patient is no longer taking any medications at home. Her vital signs have been stable. No further workup or intervention is being pursued at this time. Analgesics and antiemetics are available as needed. Findings and treatment plan were discussed extensively with the patient and her family members at bedside. Questions were solicited and answered to satisfaction. The patient's medical management will be taken over by the hospitalist team in a.m. Subjective Date/time seen: 11/03/23 13:06 Interval history: Patient alert oriented to self. She is up to chair and pleasant. There is a sitter at bedside. The sitter states that she has been pleasantly confused and has not had any problems with her. Patient needs 48 hours of sitter free care. Sitter discontinued. waiting on correction placement. Exam Narrative: GENERAL: Comfortable, no acute distress HENMT: moist mucous membranes EYES: EOM intact b/l NECK: no lymphadenopathy RESPIRATORY: clear to auscultation, no increased respiratory effort CARDIO: Regular rate and rhythm GI: soft, nontender, bowel sounds present SKIN/EXTREMITIES: no rashes, no edema, no redness or tenderness NEURO: PROM intact, A&O x1 Objective Data Vital Signs Vital Signs: Vital Signs - 24 hr 11/02/23 13:45 11/02/23 14:40 11/02/23 15:41 Temperature Pulse Rate 67 62 59 L Respiratory Rate 18 16 15 Blood Pressure 142/60 H 132/68 113/46 L Pulse Oximetry 100 99 98 Oxygen Delivery 11/02/23 16:46 11/02/23 17:30 11/02/23 18:01 Temperature Pulse Rate 60 62 63 Respiratory Rate 16 16 18 Blood Pressure 129/64 Pulse Oximetry 98 Oxygen Delivery 11/02/23 18:20 11/02/23 18:44 11/02/23 21:19 Temperature Pulse Rate 65 64 Respiratory Rate 11 L 13 Blood Pressure 150/69 H 170/87 H Pulse Oximetry 98 99 Oxygen Delivery Room Air 11/03/23 06:00 11/03/23 08:13 Temperature 97.3 F L Pulse Rate 60 Respirato
[2023-11-03] MEDS: amLODIPine BESYLATE 5 MG TABLET PO (14:04)
[2023-11-03 14:08] VITALS: BP 143/65; PULSE 67; RESP 18; TEMP 36.7; O2SAT 99
[2023-11-03 22:00] VITALS: BP 134/60; PULSE 71; RESP 20; TEMP 36.2; O2SAT 100
[2023-11-04 05:39] LABS: Hematocrit 37.7 % (37.0-47.0); Hemoglobin 12.6 g/dL (12.0-15.0); Mean Corpuscular HGB Conc 33.4 g/dl (32-36); Mean Corpuscular Hemoglobin 30.8 pg (26-34); Mean Corpuscular Volume 92.2 fl (80-100); Mean Platelet Volume 10.4 fl (7.4-10.4); Platelet Count Result 179 k/mm3 (150-375); Red Blood Count 4.09 M/mm3 (4.2-5.4); Red Cell Distribution Width 13.1 % (11.5-14.5); White Blood Count 7.5 K/mm3 (4.5-10.0)
[2023-11-04 05:51] LABS: Anion Gap 4 mmol/L (4-12); Blood Urea Nitrogen 10 mg/dL (7-17); Calcium 8.8 mg/dL (8.4-10.2); Carbon Dioxide 26 mmol/L (22-30); Chloride 106 mmol/L (98-107); Estimated CRCL calculation 42 ml/min; Estimated Glomerular Filt Rate > 60; Glucose 144 mg/dL (65-110); Potassium 3.4 mmol/L (3.4-5.0); Sodium 136 mmol/L (137-145)
[2023-11-04 06:00] VITALS: BP 129/89; PULSE 69; RESP 20; TEMP 36.2; O2SAT 100
--- NOTE | 2023-11-04 07:23 | PM.IMPN ---
Progress Note: A&P Assessment and Plan (1) Subarachnoid hemorrhage: Code(s): I60.9 - Nontraumatic subarachnoid hemorrhage, unspecified Status: Acute Assessment and Plan: The patient presented to the emergency department accompanied by family members who are requesting help getting her placed in a nursing facility. Initial workup included a brain CT due to a recent fall and that showed a subarachnoid hemorrhage. Repeat CT in 12 hours showed a slight increase in size of the bleed. Neurosurgery was consulted in the indicated that the patient is not a candidate for surgical intervention. Furthermore family members would not want any intervention should her condition decline at which time they would go comfort measures only. She is being treated at this time for her safety due to family's lack of ability to care for her appropriately; she is not safe to return to her home alone. Care coordination has been consulted and they are working on finding placement. Per care coordination patient was accepted by [facility], but must be sitter free for 48 hours. Per nursing patient had sitter removed on 11/02 at 1300. [facility] head of bed Tylenol PRN (2) Unable to care for self: Code(s): Z78.9 - Other specified health status Status: Acute Assessment and Plan: Care coordination consult. Plan for NH placement. Per care coordination patient was accepted by [facility], but must be sitter free for 48 hours. Per RN patient had sitter removed on 11/02 at 1300. (3) Cognitive decline: Code(s): R41.89 - Other symptoms and signs involving cognitive functions and awareness Status: Acute Assessment and Plan: Needs halfway placement. Per care coordination patient was accepted by [facility], but must be sitter free for 48 hours. Per RN patient had sitter removed on 11/02 at 1300. (4) Hypertension: Code(s): I10 - Essential (primary) hypertension Status: Acute Assessment and Plan: Currently not on any medications. 181/80 on arrival to the ED. Will start patient on amlodipine 5 mg daily. Blood pressure remains stable. (5) Paroxysmal atrial fibrillation: Code(s): I48.0 - Paroxysmal atrial fibrillation Status: Acute Assessment and Plan: Currently not on any medications. (6) Hypothyroidism: Code(s): E03.9 - Hypothyroidism, unspecified Status: Acute Assessment and Plan: Currently not on any medications. Plan The patient is no longer taking any medications at home. Her vital signs have been stable. No further workup or intervention is being pursued at this time. Analgesics and antiemetics are available as needed. Findings and treatment plan were discussed extensively with the patient and her family members at bedside. Questions were solicited and answered to satisfaction. The patient's medical management will be taken over by the hospitalist team in a.m. Subjective Date/time seen: 11/04/23 07:23 Interval history: 83-year-old female with probable underlying dementia although she has never been formally diagnosed, hypertension, paroxysmal atrial fibrillation, and hyperlipidemia who presented to the emergency department accompanied by family members last evening because ?she needs halfway placement.? Patient is pleasant sitting up in her chair comfortably. She complains of right ear pain. She denies ringing or decreased hearing. There is no noted pain or redness on external exam. TM was unremarkable. She remains in the hospital pending placement. Per care coordination patient was accepted by [facility], but must be sitter free for 48 hours. Per nursing patient had sitter removed on 11/02 at 1300. She remains comfort measures at this time. She denies chest pain, shortness of breath, palpitaitons, nausea/vomiting and changes in bowel/bladder. Review of Systems Review of Systems: All systems reviewed & are unremarkab
[2023-11-04] MEDS: amLODIPine BESYLATE 5 MG TABLET PO (08:35)
[2023-11-04] MEDS: ACETAMINOPHEN 325 MG TABLET 650 MG PO (12:36)
[2023-11-04 13:22] VITALS: BP 142/72; PULSE 72; RESP 18; TEMP 36.6; O2SAT 100
[2023-11-04 22:00] VITALS: BP 124/97; PULSE 70; RESP 20; TEMP 36.1; O2SAT 100
[2023-11-05] MEDS: ONDANSETRON HCL ODT 4 MG TABLET PO (00:24)
[2023-11-05] MEDS: ACETAMINOPHEN 325 MG TABLET 650 MG PO (01:27)
[2023-11-05 06:00] VITALS: BP 148/71; PULSE 66; RESP 20; TEMP 36.4; O2SAT 99
[2023-11-05 07:56] LABS: Basophils Percent Auto 0.4 % (0.2-1.2); Eosinophils Absolute Auto 0.1 K/mm3 (0-0.3); Eosinophils Percent Auto 1.6 % (0-4.4); Hematocrit 39.5 % (37.0-47.0); Immature Granulocyte Absolute 0.05 K/mm3 (0.00-0.031); Immature Granulocyte Percent A 0.7 % (0-0.5); Lymphocytes Absolute Auto 2.24 K/mm3 (0.9-3.2); Lymphocytes Percent Auto 32.8 % (18.3-44.2); Mean Corpuscular HGB Conc 32.9 g/dl (32-36); Mean Corpuscular Hemoglobin 30.7 pg (26-34); Mean Corpuscular Volume 93.4 fl (80-100); Mean Platelet Volume 10.9 fl (7.4-10.4); Monocytes Absolute Auto 0.8 K/mm3 (0.1-0.6); Monocytes Percent Auto 11.4 % (2.6-8.5); Neutrophils Absolute Auto 3.6 K/mm3 (1.3-6.7); Neutrophils Percent Auto 53.1 % (45.5-73.1); Platelet Count Result 197 k/mm3 (150-375); Red Blood Count 4.23 M/mm3 (4.2-5.4); Red Cell Distribution Width 13.2 % (11.5-14.5); White Blood Count 6.8 K/mm3 (4.5-10.0)
[2023-11-05 08:06] LABS: Alanine Aminotransferase 12 U/L (6-35); Albumin Level 3.4 g/dL (3.5-5.1); Alkaline Phosphatase 71 U/L (38-126); Anion Gap 3 mmol/L (4-12); Aspartate Amino Transferase 18 U/L (14-36); Bilirubin,Total 1.1 mg/dL (0.2-1.3); Blood Urea Nitrogen 12 mg/dL (7-17); Calcium 8.8 mg/dL (8.4-10.2); Carbon Dioxide 28 mmol/L (22-30); Chloride 105 mmol/L (98-107); Estimated CRCL calculation 42 ml/min; Estimated Glomerular Filt Rate > 60; Glucose 135 mg/dL (65-110); Potassium 3.9 mmol/L (3.4-5.0); Sodium 136 mmol/L (137-145)
[2023-11-05] MEDS: amLODIPine BESYLATE 5 MG TABLET PO (08:15)
[2023-11-05 13:47] VITALS: BP 146/73; PULSE 67; RESP 16; TEMP 36.6; O2SAT 98
--- NOTE | 2023-11-05 14:07 | PM.DS ---
DS: Admitting Diagnosis Discharge Date 11/05/2023 Admitting Diagnosis Subarachnoid hemorrhage Unable to care for self Cognitive decline Hypertension Paroxysmal afib Hypothyroidism DS: Discharge Diagnosis Discharge Diagnosis (1) Subarachnoid hemorrhage: Code(s): I60.9 - Nontraumatic subarachnoid hemorrhage, unspecified Status: Acute (2) Unable to care for self: Code(s): Z78.9 - Other specified health status Status: Acute (3) Cognitive decline: Code(s): R41.89 - Other symptoms and signs involving cognitive functions and awareness Status: Acute (4) Hypertension: Code(s): I10 - Essential (primary) hypertension Status: Acute (5) Paroxysmal atrial fibrillation: Code(s): I48.0 - Paroxysmal atrial fibrillation Status: Acute (6) Hypothyroidism: Code(s): E03.9 - Hypothyroidism, unspecified Status: Acute DS: Summary Hospital Course Reason for hospitalization: Subarachnoid hemorrhage Unable to care for self Cognitive decline Hypertension Paroxysmal afib Hypothyroidism Hospital Course: 83-year-old female with probable underlying dementia although she has never been formally diagnosed, hypertension, paroxysmal atrial fibrillation, and hyperlipidemia who presented to the emergency department accompanied by family members for half-way placement. Labs and urinalysis were fairly unremarkable. Initial workup included a brain CT due to a recent fall and that showed a subarachnoid hemorrhage. Repeat CT in 12 hours showed a slight increase in size of the bleed. Neurosurgery was consulted in they indicated that the patient is not a candidate for surgical intervention. Furthermore family members would not want any intervention should her condition decline at which time they would go comfort measures only. Patient was noted to be hypertensive during her admission and was started on amlodipine at that time. She remains on amlodipine at discharge. She has a history of afib and hypothyroidism, but has not been taking medications at home for these conditions. Patient was able to ambulate around her room without assistance. Patient discharged in a stable condition to [facility]. She will follow up with her PCP in 1 week. Status at Discharge Functional status at discharge: independent ambulation Time Spent with Patient Time attestation: Total time spent providing and/or coordinating discharge services: Time spent: Greater than 30 minutes Exam Narrative: AF HR 67 RR 16 SpO2 98 BP 146/73 General: female in no acute respiratory distress who is nontoxic appearing, sitting up in chair HEENT: Normocephalic. Atraumatic. Pupils equal round reactive to light. Extraocular movement intact. Sclera clear and anicteric. TM unremarkable. No erythema or tragal tenderness on external exam of right ear. No facial asymmetry. Chest: Lungs are clear to auscultation bilaterally. No wheezes or crackles. CV: Heart was regular rate and rhythm. S1-S2. No murmurs, gallops, or rubs. Abd: Abdomen was soft. Nontender. Nondistended. Positive bowel sounds. No organomegaly or masses. Ext: No clubbing, cyanosis, or edema. 2+ DP pulses bilaterally. Neuro: Patient is alert and oriented x2 (person, hospital). Cranial nerves 2-12 are intact. Speech is clear. Psych: Normal mood and affect. Patient is pleasant and cooperative. Skin: Warm and dry. No rashes noted. DS: Data Data Completed and Pending Completed studies during hospitalization: Head CT CT brain angiography Chest XR Head CT Labs on day of discharge: Labs from last 24 hours 11/05/23 07:39 WBC 6.8 RBC 4.23 Hgb 13.0 Hct 39.5 MCV 93.4 MCH 30.7 MCHC 32.9 RDW 13.2 Plt Count 197 MPV 10.9 H Immature Gran % (Auto) 0.7 H Neut % (Auto) 53.1 Lymph % (Auto) 32.8 Hartley % (Auto) 11.4 H Eos % (Auto) 1.6 Baso % (Auto) 0.4 Lymph # (Auto) 2.24 Hartley # (Auto) 0.8 H Eos # (Auto) 0.1 Baso # (Auto) 0.0 Abs Carly
== END 2023-11-05 15:08 ==
LOC: ANHED 19:41 → ANH3MED 21:35
PROVIDERS: Internal Medicine Critical Care Medicine; Student in an Organized Health Care Education/Training Program; Admitting Provider Internal Medicine; Emergency Provider Emergency Medicine; PCP Nurse Practitioner Family; Visit Provider Student in an Organized Health Care Education/Training Program
DX: Z51.5 Encounter for palliative care (principal); I60.9 Nontraumatic subarachnoid hemorrhage, unspecified; F03.90 Unspecified dementia, unspecified severity, without behavioral disturbance, psychotic disturbance, mood disturbance, and anxiety; R41.89 Other symptoms and signs involving cognitive functions and awareness; I10 Essential (primary) hypertension; E78.5 Hyperlipidemia, unspecified; E03.9 Hypothyroidism, unspecified; I48.0 Paroxysmal atrial fibrillation; Z66 Do not resuscitate; Z91.81 History of falling; Z20.822 Contact with and (suspected) exposure to COVID-19
CPT/HCPCS: 36415; 70450; 70496; 71045; 80048; 80053; 80307; 81001; 83735; 84439; 84443; 84480; 85025; 85027; 85610; 85730; 87637; 93005; 96374; 99285; A9270; G0378; Q9967

== ENCOUNTER 2025-05-27 13:57 | Outpatient (CLI) | payer MEDICARE, SELFPAY ==
[2025-05-27 14:16] LABS: Hematocrit 41.4 % (35.0-42.0); Hemoglobin 13.6 g/dL (11.7-13.8); Immature Granulocyte Percent A 0.8 % (0.0-0.0); Lymphocytes Absolute Auto 2.76 K/mm3 (1.10-4.50); Mean Corpuscular HGB Conc 32.9 g/dL (32-36); Mean Corpuscular Hemoglobin 30.7 pg (27.0-31.0); Mean Corpuscular Volume 93.5 fL (78.0-102.0); Nucleated Red Blood Cells Absolute Auto 0.00 K/mm3 (0.00-0.00); Nucleated Red Blood Cells Perc 0.0 % (0-0.0); Platelet Count Result 217 K/mm3 (150-420); Red Blood Count 4.43 M/mm3 (4.20-5.40); White Blood Count 7.8 K/mm3 (4.8-10.8)
[2025-05-27 14:33] LABS: Hemoglobin A1C 9.5 % (<5.7)
[2025-05-27 14:59] LABS: Alanine Aminotransferase 23 U/L (6-35); Albumin Level 4.2 g/dL (3.5-5.1); Alkaline Phosphatase 146 U/L (38-126); Anion Gap 9 mmol/L (4-12); Aspartate Amino Transferase 21 U/L (14-36); Bilirubin,Total 1.0 mg/dL (0.2-1.3); Blood Urea Nitrogen 10 mg/dL (7-17); Calcium 9.7 mg/dL (8.4-10.2); Carbon Dioxide 27 mmol/L (22-30); Chloride 101 mmol/L (98-107); Cholesterol 217 mg/dL (0-200); Estimated Glomerular Filt Rate > 60; Glucose 330 mg/dL (65-110); HDL Direct 46 mg/dL; Osmolality Calculated 296 mOsm/kg (285-295); Potassium 4.0 mmol/L (3.4-5.0); Sodium 137 mmol/L (137-145); Total Protein 6.7 g/dL (6.3-8.2); Triglycerides 297 mg/dL (<150)
[2025-05-27 15:30] LABS: Thyroid Stimulating Hormone 5.600 uIU/mL (0.465-4.680)
[2025-05-27 15:49] LABS: Vitamin B12 388.0 pg/mL (239-931)
== END 2025-05-27 13:58 | disposition home or self-care (01) ==
LOC: CHSLAB 14:02
PROVIDERS: PCP Family Medicine; Visit Provider Family Medicine
DX: E78.5 Hyperlipidemia, unspecified (principal); I10 Essential (primary) hypertension; F03.90 Unspecified dementia, unspecified severity, without behavioral disturbance, psychotic disturbance, mood disturbance, and anxiety; E11.9 Type 2 diabetes mellitus without complications
CPT/HCPCS: 36415; 80053; 80061; 82607; 83036; 84443; 85025